=== PATIENT | female | born 1970 | race Caucasian/White ===

== ENCOUNTER 2020-12-30 07:19 | Outpatient (CLI) | payer OTHER ==
--- NOTE | 2020-12-30 08:07 | ULT ---
GALLBLADDER ULTRASOUND: HISTORY: Right upper quadrant abdominal pain FINDINGS: The liver demonstrates homogeneous echotexture without focal mass or intrahepatic biliary ductal dila tation. No gallstones, gallbladder wall thickening or pericholecystic fluid are seen. The right kidney and visualized portions of the pancreas are normal. The common duct [id number] in diameter. No free fluid is seen in the German's pouch. IMPRESSION: Normal exam.
== END 2020-12-30 07:20 | disposition home or self-care (01) ==
LOC: ULT 07:19
PROVIDERS: ATTEND Family Medicine
DX: R10.11 Right upper quadrant pain (principal)
CPT/HCPCS: 76705

== ENCOUNTER 2021-01-27 12:19 | Outpatient (CLI) | payer OTHER, SELFPAY | END 2021-01-27 12:20 | disposition home or self-care (01) | LOC: NM 12:19 | PROVIDERS: ATTEND Family Medicine | DX: R10.11 Right upper quadrant pain (principal) | CPT/HCPCS: 78227; A9537 ==